=== PATIENT | female | born 1990 | race Two or more races ===

== ENCOUNTER 2022-02-06 08:39 | Emergency (ER) | payer OTHER ==
[~2022-02-06] VITALS: Ht 160 cm; Wt 97.5 kg
== END 2022-02-06 12:21 | disposition home or self-care (01) ==
LOC: ER 08:39
DX: N39.0 Urinary tract infection, site not specified (principal); R10.2 Pelvic and perineal pain

== ENCOUNTER 2023-05-03 13:17 | Emergency (ER) | payer OTHER ==
[~2023-05-03] VITALS: Ht 160 cm; Wt 102.1 kg
[2023-05-03] MEDS ORDERED: LOSARTAN POTAS100 MG PO (13:26)
[2023-05-03] MEDS ORDERED: DICLOFENAC SODI75 MG PO (15:34)
== END 2023-05-03 15:41 | disposition home or self-care (01) ==
LOC: ER 13:17
DX: M62.838 Other muscle spasm (principal)

== ENCOUNTER 2025-04-17 13:07 | Emergency (ER) | payer OTHER ==
[~2025-04-17] VITALS: Ht 160 cm; Wt 86.6 kg
[~2025-04-17 13:07] MED LIST: DICLOFENAC SODI75 MG PO; LOSARTAN POTAS100 MG PO
[2025-04-17] MEDS ORDERED: LABETALOL HCL100 MG PO (13:42)
[2025-04-17] MEDS ORDERED: LOSARTAN-HCTZ1 EAC2 PO (13:42)
[2025-04-17] MEDS ORDERED: NEURIN SL (13:44)
[2025-04-17] MEDS ORDERED: ORPHENADRINE CITRATE 30 MG/ML AMPUL IM STA (15:03)
[2025-04-17] MEDS ORDERED: ORPHENADRINE CITRATE 30 MG/ML AMPUL ONE (15:22)
== END 2025-04-17 15:49 | disposition home or self-care (01) ==
LOC: ER 13:07
DX: M62.838 Other muscle spasm (principal); M54.50 Low back pain, unspecified; Z88.6 Allergy status to analgesic agent; Z91.013 Allergy to seafood